=== PATIENT | female | born 1995 | race Caucasian/White ===

== ENCOUNTER 2021-07-08 11:30 | Outpatient (CLI) | payer OTHER, SELFPAY ==
[2021-07-08 12:14] VITALS: BP 110/74; PULSE 83
[2021-07-08 12:16] VITALS: BP 101/62; PULSE 84
[2021-07-08 12:27] VITALS: BP 134/95; PULSE 92
== END 2021-07-08 12:30 | disposition home or self-care (01) ==
LOC: ANHOBOP 12:11 → ANHLDR 12:12
PROVIDERS: Visit Provider Obstetrics & Gynecology
DX: O42.92 Full-term premature rupture of membranes, unspecified as to length of time between rupture and onset of labor (principal); Z3A.39 39 weeks gestation of pregnancy
CPT/HCPCS: 59025; 84112; 99199

== ENCOUNTER 2021-07-12 04:58 | Inpatient (IN) | payer OTHER, SELFPAY ==
[2021-07-12] VITALS (102 sets, daily range): BP systolic 65–136; BP diastolic 40–101; PULSE 71–128; RESP 16–18; TEMP 36.3–36.9; O2SAT 69–100; BMI 32.3
[2021-07-12] MEDS: OXYTOCIN 30 UNITS/NS 500 ML 30 UNITS/500 ML BAG IV CONT (05:36)
[2021-07-12] MEDS: LACTATED RINGERS 1,000 ML 125 ML IV CONT ×2 (05:37→08:47)
[2021-07-12 05:39] LABS: Basophils Absolute Auto 0.1 K/mm3 (0.0-0.1); Basophils Percent Auto 0.5 % (0.2-1.2); Eosinophils Absolute Auto 0.1 K/mm3 (0-0.3); Eosinophils Percent Auto 0.8 % (0-4.4); Hematocrit 31.3 % (37.0-47.0); Hemoglobin 10.2 g/dL (12.0-15.0); Immature Granulocyte Absolute 0.31 K/mm3 (0.00-0.031); Immature Granulocyte Percent A 2.3 % (0-0.5); Lymphocytes Absolute Auto 2.49 K/mm3 (0.9-3.2); Lymphocytes Percent Auto 18.8 % (18.3-44.2); Mean Corpuscular HGB Conc 32.6 g/dl (32-36); Mean Corpuscular Hemoglobin 28.5 pg (26-34); Mean Corpuscular Volume 87.4 fl (80-100); Mean Platelet Volume 11.3 fl (7.4-10.4); Monocytes Absolute Auto 1.2 K/mm3 (0.1-0.6); Monocytes Percent Auto 9.2 % (2.6-8.5); Neutrophils Absolute Auto 9.1 K/mm3 (1.3-6.7); Neutrophils Percent Auto 68.4 % (45.5-73.1); Platelet Count Result 222 k/mm3 (150-375); Red Blood Count 3.58 M/mm3 (4.2-5.4); Red Cell Distribution Width 12.8 % (11.5-14.5); White Blood Count 13.3 K/mm3 (4.5-10.0)
--- NOTE | 2021-07-12 05:45 | LDADM ---
This patient, Nichelle Merino, was admitted to Labor/Delivery/Recovery 104 on 07/12/21 at 04:58. Plans for labor, pain management and were discussed with patient. Patient/family oriented to hospital policies and general routines including ID bracelet, bed and alarms, visiting hours, pain management, procedures, bathroom and other care routines, personal items, smoking policy, room service/diet and guest tray routines, security routines, and visiting hours. Patient/Family are encouraged to report perceived risks to care and to ask questions if they do not understand what they are told or what they should do. See OBIX for further documentation.
--- NOTE | 2021-07-12 07:45 | PM.IMHP ---
H&P: HPI History of Present Illness Date/Time: 07/12/21 07:45 26-year-old 2 para 1 whose last menstrual period was 10/15/2020, EDC is 07/16/2021, presents at 39 half weeks gestation for induction of labor. Cervix is favorable and she has a 10 week ultrasound confirming dates. Chief Complaint: induction of labor at term Review of Systems Review of Systems: All systems reviewed & are unremarkable except as noted in HPI and below PMFSH Family History Family History Sibling PCOS (polycystic ovarian syndrome) Hypertension Mother Hypertension Sibling Abnormal heart rhythm Social History Social History Smoking status: Never smoker Second hand tobacco smoke exposure: No Substance use: never Spiritual care concerns: No Meds Home Medications and Allergies Home Medications Medication Instructions Recorded Confirmed Type 1 tablet BYMOUTH DAILY 07/12/21 07/12/21 History Allergies Allergy/AdvReac Type Severity Reaction Status Date / Time No Known Allergies Allergy Verified 06/24/21 15:36 Vital Signs Vital Signs - 24 hr 07/12/21 05:35 07/12/21 05:39 07/12/21 05:45 Temperature 98 F Pulse Rate 103 H 108 H Blood Pressure 136/87 128/81 07/12/21 06:00 07/12/21 06:16 07/12/21 06:30 Temperature Pulse Rate 102 H 93 92 Blood Pressure 128/85 124/73 123/83 07/12/21 06:45 07/12/21 07:00 07/12/21 07:16 Temperature Pulse Rate 100 109 H 112 H Blood Pressure 101/73 112/86 122/76 07/12/21 07:30 Temperature Pulse Rate 92 Blood Pressure 119/55 L Exam Const: General: no acute distress Eyes: General: appearance normal, both eyes and all related structures Neck: Neck: supple and no JVD Thyroid: thyroid normal Resp: Effort & Inspection: normal respiratory effort Auscultation: clear to auscultation bilaterally Cardio: Rate: regular rate Rhythm: regular rhythm GI: Inspection: non-distended GI Palp: Yes Soft to palpation, No Tenderness to palpation present (GI) and No Guarding due to palpation present (GI) Auscultation: normal bowel sounds : External Female Exam: normal external appearance Speculum Exam - Vagina: normal appearance of the vagina Speculum Exam - Cervix: normal appearance of the cervix ( Cervix 3/80/1. AROM clear. FHTs reassuring) Skin: General skin exam: no rashes or lesions noted Extrem: General: normal to inspection and no edema Psych: Mental Status: mental status grossly normal Affect: normal affect H&P: Results Labs Labs: Short CBC 07/12/21 Range/Units 05:13 WBC 13.3 H (4.5-10.0) K/mm3 Hgb 10.2 L (12.0-15.0) g/dL Hct 31.3 L (37.0-47.0) % Plt Count 222 (150-375) k/mm3 Assessment and Plan Additional Plan impression: Term with favorable cervix Plan: Medical induction of labor. Spontaneous vaginal delivery is expected. She has an epidural candidate
[2021-07-12] MEDS: ACETAMINOPHEN 500 MG TABLET 1000 MG PO (07:48)
--- NOTE | 2021-07-12 08:25 | WPDANESEPPF ---
Anes - Initial Pre Proc Eval Date/Time: 07/12/21 08:25 Surgeon: Felix Donnelly MD Pre Op Diagnosis: IOL Patient Data Age: 26 Gender: F Height: 1.52 m Weight: 75 kg Last Vital Signs Temp 36.6 C 07/12/21 05:35 Pulse 86 07/12/21 08:23 BP 65/40 L 07/12/21 08:23 Pulse Ox 100 07/12/21 08:21 Allergies Allergy/AdvReac Type Severity Reaction Status Date / Time No Known Allergies Allergy Verified 06/24/21 15:36 Home Medications Medication Instructions Recorded Confirmed Type 1 tablet BYMOUTH DAILY 07/12/21 07/12/21 History Laboratory Tests 07/12/21 07/12/21 07/12/21 05:13 05:13 05:13 WBC 13.3 K/mm3 H K/mm3 (4.5-10.0) RBC 3.58 M/mm3 L M/mm3 (4.2-5.4) Hgb 10.2 g/dL L g/dL (12.0-15.0) Hct 31.3 % L % (37.0-47.0) MCV 87.4 fl fl (80-100) MCH 28.5 pg pg (26-34) MCHC 32.6 g/dl g/dl (32-36) RDW 12.8 % % (11.5-14.5) Plt Count 222 k/mm3 k/mm3 (150-375) MPV 11.3 fl H fl (7.4-10.4) Immature Gran % (Auto) 2.3 % H % (0-0.5) Neut % (Auto) 68.4 % % (45.5-73.1) Lymph % (Auto) 18.8 % % (18.3-44.2) Colbert % (Auto) 9.2 % H % (2.6-8.5) Eos % (Auto) 0.8 % % (0-4.4) Baso % (Auto) 0.5 % % (0.2-1.2) Lymph # (Auto) 2.49 K/mm3 K/mm3 (0.9-3.2) Colbert # (Auto) 1.2 K/mm3 H K/mm3 (0.1-0.6) Eos # (Auto) 0.1 K/mm3 K/mm3 (0-0.3) Baso # (Auto) 0.1 K/mm3 K/mm3 (0.0-0.1) Abs Immat Gran (auto) 0.31 K/mm3 H K/mm3 (0.00-0.031) Absolute Neuts (auto) 9.1 K/mm3 H K/mm3 (1.3-6.7) Absolute Nucleated RBC 0.0 K/mm3 K/mm3 (0.0-0.012) Nucleated RBC % 0.0 % % (0.0-0.2) RPR Pending Blood Type A Positive Antibody Screen Negative Patient hx anesthesia problems: none Family hx anesthesia problems: none Results Review: All pre-operative results and documents have been reviewed as part of the pre-operative evaluation. [facility] Family History Family History Sibling PCOS (polycystic ovarian syndrome) Hypertension Mother Hypertension Sibling Abnormal heart rhythm Social History Social History Smoking status: Never smoker Second hand tobacco smoke exposure: No Substance use: never Spiritual care concerns: No Anes - Eval Final PreProcedure Day of Procedure 07/12/21 08:25 Patient weight: obese Heart: regular rate and rhythm Lungs: clear to auscultation Neurological: alert and oriented Last oral intake: >/= 8 hours ASA classification: II Emergent: no Anesthetic plan: proceed Anesthesia type and monitoring: regional epidural and standard monitoring Results Review: All pre-operative results and documents have been reviewed as part of the pre-operative evaluation. Informed Consent: The patient's anesthetic plan and its attendant risks and benefits were discussed with the patient/family/POA. Questions were solicited and answers provided to the satisfaction of the patient/family/POA.
[2021-07-12] MEDS: ONDANSETRON INJ 4 MG/2 ML VIAL IV PUSH (08:54)
[2021-07-12 11:53] LABS: Rapid Plasma Reagin Non-Reactive (NonReactive)
--- NOTE | 2021-07-12 12:39 | PM.OBPRVD ---
OB - Delivery Note Procedure Delivery date: 07/12/21 Procedure: mil Induction method: AROM Delivery augmentation: Pitocin Delivery monitor: External FHT Route of delivery: Episiotomy description: None Laceration Description: None Quantitative Blood Loss (ml): 59 Anesthesia type: Epidural Disposition: Floor Baby Date of : 07/12/21 Time of : 12:29 Weeks of gestation at delivery: 39 Weight (pounds): 7 Weight (ounces): 7 presentation: vertex position: Right Occiput Anterior Placenta delivery description: Spontaneous Cord Vessel Description: 3 Vessels score one minute: 9 score five minutes: 9
[2021-07-12] MEDS: OXYTOCIN 30 UNITS/NS 500 ML 30 UNITS/500 ML BAG 125 UNITS IV CONT (13:03)
--- NOTE | 2021-07-12 14:55 | PC.NURSE ---
Patient transferred to post room #284 per wheelchair from labor and delivery. Support person present. Oriented to unit, room, information board, rooming in, admission packet and security measures. Patient verbalizes understanding.
[2021-07-13 05:00] VITALS: BP 108/67; PULSE 94; RESP 16; TEMP 36.4
[2021-07-13] MEDS: ACETAMINOPHEN 325 MG TABLET 650 MG PO (05:25)
[2021-07-13 05:34] LABS: Hematocrit 30.1 % (37.0-47.0); Hemoglobin 8.9 g/dL (12.0-15.0)
[2021-07-13 07:20] VITALS: BP 120/70; PULSE 91; RESP 22; TEMP 36.2; O2SAT 100
--- NOTE | 2021-07-13 07:49 | P.DS_ITS ---
DS: Admitting Diagnosis Discharge Date 07/12/2021 Admitting Diagnosis term DS: Summary Hospital Course Hospital Course: patient was admitted for induction of labor and underwent spontaneous vaginal delivery. Her hospital course unremarkable. She remained afebrile. She was up, voiding without difficulty, ambulating, generally without complaints. Time Spent with Patient Time attestation: Total time spent providing and/or coordinating discharge services: Exam Const: General: no acute distress Eyes: General: appearance normal, both eyes and all related structures Neck: Neck: supple and no JVD Thyroid: thyroid normal Resp: Effort & Inspection: normal respiratory effort Auscultation: clear to auscultation bilaterally Cardio: Rate: regular rate Rhythm: regular rhythm GI: Inspection: non-distended GI Palp: Yes Soft to palpation, No Tenderness to palpation present (GI) and No Guarding due to palpation present (GI) Auscultation: normal bowel sounds : General: Yes bladder normal to palpation External Female Exam: normal external appearance Speculum Exam - Vagina: normal vaginal discharge and No vaginal bleeding Speculum Exam - Cervix: nontender Bimanual exam- vagina & uterus: bladder normal to palpation and No Cervical tenderness present OB/external & speculum: No vaginal bleeding Skin: General skin exam: no rashes or lesions noted Extrem: General: normal to inspection and no edema Psych: Mental Status: mental status grossly normal Affect: normal affect DS: Data Data Completed and Pending Labs on day of discharge: Labs from last 24 hours 07/13/21 07/12/21 05:27 05:13 Hgb 8.9 L Hct 30.1 L RPR Non-reactive Discharge Plan Discharge Attending physician on discharge: Felix Landin Discharging Clinician: Felix Landin Patient Disposition: Home, Self-Care Activity: may shower, no straining and pelvic rest Diet: heart healthy Wound Care Instructions: follow printed instructions Patient Instructions: Antibiotic Form Stand Alone Forms: General Discharge Information Follow-up/Referrals: Felix Landin MD [Physician] - Discharge Medications: Continued 1 tablet BYMOUTH DAILY RF: 0 Date of admission: 07/12/21 04:58 Primary Care Provider: PHYSICIAN,COLLISION REPAIR TECHNICIAN Admitting Provider: Felix Landin Attending physician on admission: Felix Landin Condition: Stable
--- NOTE | 2021-07-13 07:51 | PM.OBPNVD ---
OB - PN: Subj Subjective Date/time seen: 07/13/21 07:51 Patient comments: no complaints and pain well controlled baby status: doing well and nursing well OB - PN: Obj Data Labs CBC & Chem 7: 07/13/21 05:27 Labs: Laboratory Results - last 24 hr 07/12/21 07/13/21 05:13 05:27 Hgb 8.9 L Hct 30.1 L RPR Non-reactive OB - PN A/P Plan day: 1 Plan: routine care, discharge home and follow up 6 weeks Time Spent With Patient Time: Total time spent is greater than 50% in coordination of care (as documented) at patient's floor/unit and/or counseling patient: Time with patient: less than 15 minutes Review of Systems Review of Systems: All systems reviewed & are unremarkable except as noted in HPI and below Exam Const: General: no acute distress Eyes: General: appearance normal, both eyes and all related structures Neck: Neck: supple and no JVD Thyroid: thyroid normal Resp: Effort & Inspection: normal respiratory effort Auscultation: clear to auscultation bilaterally Cardio: Rate: regular rate Rhythm: regular rhythm GI: Inspection: non-distended GI Palp: Yes Soft to palpation, No Tenderness to palpation present (GI) and No Guarding due to palpation present (GI) Auscultation: normal bowel sounds : General: Yes bladder normal to palpation External Female Exam: normal external appearance Speculum Exam - Vagina: normal vaginal discharge and No vaginal bleeding Speculum Exam - Cervix: nontender Bimanual exam- vagina & uterus: bladder normal to palpation and No Cervical tenderness present OB/external & speculum: No vaginal bleeding Skin: General skin exam: no rashes or lesions noted Extrem: General: normal to inspection and no edema Psych: Mental Status: mental status grossly normal Affect: normal affect
[2021-07-13 08:30] VITALS: PULSE 91; RESP 22; O2SAT 100
[2021-07-13] MEDS: DOCUSATE SODIUM 100 MG CAPSULE PO (08:47)
[2021-07-13] MEDS: IBUPROFEN 600 MG TABLET PO (08:48)
[2021-07-13] MEDS: MULTIVIT/MIN/PREN/FOL AC/IRON TABLET 1 TAB PO (08:48)
--- NOTE | 2021-07-13 08:48 | PC.NURSE ---
On 07/13/21, the student, Gilma Felix, provided care and completed [facility] documentation on this patient. I have reviewed the student's documentation and agree with the findings.
--- NOTE | 2021-07-13 09:51 | PC.NURSE ---
0915 - 0920 Introductions were made and consulted with patient to assess needs related to . Mother led conversation with her experience with feeding baby so far and her plan to feed her infant. Mother plans to pump and feed so the father of the baby can help feed the . Mother did not breastfeed or pump during since 0000. Discussed stimulating the hormones to make and release milk with pumping or for a good milk supply. Mother voiced understanding of the information shared but and will attempt to breastfeed again but will supplement. She is not interested in pumping at this time. Encouraged mother to call out for assistance if infant doesn't latch or there is pain with latching. Reported to primary RN.
[2021-07-13] MEDS: POLYSACCHARIDE IRON COMPLEX 150 MG CAPSULE PO (09:57)
[2021-07-13 11:58] VITALS: BP 114/67; PULSE 75; RESP 75; TEMP 36.9; O2SAT 100
[2021-07-13] MEDS: MEASLES,MUMPS,RUBELLA VACCINE 0.5 ML VIAL SUB-Q (12:47)
[2021-07-14 08:52] VITALS: BP 117/87; PULSE 100; RESP 16; TEMP 36.9; O2SAT 99
== END 2021-07-13 13:50 | disposition home or self-care (01) | DRG 807 ==
LOC: ANHLDR 05:00 → ANHOB2 15:04
PROVIDERS: Admitting Provider Obstetrics & Gynecology; Visit Provider Obstetrics & Gynecology
DX: O36.8330 Maternal care for abnormalities of the fetal heart rate or rhythm, third trimester, not applicable or unspecified (principal); Z37.0 Single live birth; Z3A.39 39 weeks gestation of pregnancy
CPT/HCPCS: 36415; 85014; 85018; 85025; 86592; 86850; 86900; 86901; 90710; A9270; J2405; J2590; J2795; J7120